=== PATIENT | male | born 1985 | race Two or more races ===

== ENCOUNTER → 2024-09-26 | Day surgery (SDC) | payer OTHER ==
[2024-09-25 11:41] VITALS: BP 136/90
[2024-09-25 12:17] LABS: URINE APPEARANCE Clear; URINE BILIRRUBIN Negative (NEGATIVE); URINE BLOOD Negative; URINE COLOR Yellow; URINE GLUCOSE Negative (NEGATIVE); URINE KETONE Negative (NEGATIVE); URINE LEUKOCYTE Negative; URINE NITRATE Negative; URINE PROTEIN Negative (NEGATIVE)
[2024-09-25 12:48] LABS: HEMATOCRIT 44.7 % (39.0-48.0); HEMOGLOBIN 15.3 g/dL (13-16.00); MEAN CELL VOLUME 86.3 fL (80.0-100.00); MEAN CORPUSCULAR HEMOGLOBIN 29.6 pg (27.00-32.0); MEAN CORPUSCULAR HGB CONC 34.3 g/dl (32.0-36.0); PLATELET COUNT 281 K/uL (150-450); RED BLOOD COUNT 5.18 M/uL (4.00-6.00); RED CELL DISTRIBUTION WIDTH 13.5 % (11.5-14.5)
[2024-09-25 12:52] LABS: COVID-19 AG NEGATIVE (NEGATIVE)
[2024-09-25 13:03] LABS: ALBUMIN 4.4 gm/dL (3.4-5.0); BILIRUBIN TOTAL 1.23 mg/dL (0.3-1.2); CALCIUM 9.6 mg/dL (8.5-10.1); CREATININE SERUM 0.92 mg/dL (0.70-1.30); GFR 91.59; GLOBULINA 3.4 G/DL (2.4-3.5); POTASSIUM 4.53 mEq/L (3.5-5.1); TOTAL PROTEIN 7.8 gm/dL (6.4-8.2)
[2024-09-25 13:12] LABS: URINE BACTERIA 0 uL (0.0-1933); URINE RBC 0.7 uL (0.0-20.8); URINE WBC 0.7 uL (0.0-23.2)
[2024-09-25 13:26] LABS: INR 0.97; PARTIAL THROMBOPLASTIN TIME 29.1 SECONDS (22.0-34.0); PROTHROMBIN TIME 10.6 SECONDS (9.0-11.5)
[~2024-09-26] VITALS: Ht 177.8 cm; Wt 83.9 kg
[~2024-09-26] MED LIST: COZAAR50 MG; ROSUVASTATIN CAL5 MG PO
== END | disposition home or self-care (01) ==
LOC: ADM 09-25 08:15 → CIR.AMB 06:41 → ADM 08:15 → CIR.AMB 08:15
PROVIDERS: ATTEND Orthopaedic Surgery
DX: S52.242A Displaced spiral fracture of shaft of ulna, left arm, initial encounter for closed fracture (principal); S50.12XA Contusion of left forearm, initial encounter
CPT/HCPCS: 25515; L8699

== ENCOUNTER 2025-04-13 15:53 | Emergency (ER) | payer OTHER ==
[~2025-04-13] VITALS: Ht 177.8 cm; Wt 86.2 kg
[2025-04-13] MEDS ORDERED: FAMOTIDINE/PF 20 MG/2 ML VIAL IV PUSH STA (17:36)
[2025-04-13] MEDS ORDERED: ONDANSETRON HCL 2 MG/ML VIAL IV STA (17:37)
[2025-04-13] MEDS ORDERED: RINGERS SOLUTION,LACTATED 1,000 ML IV STA (17:37)
[2025-04-13] MEDS ORDERED: ONDANSETRON HCL 2 MG/ML VIAL ONE (17:51)
[2025-04-13] MEDS ORDERED: FAMOTIDINE/PF 20 MG/2 ML VIAL ONE (17:51)
[2025-04-13 18:29] LABS: BASO % 0.2 % (0.1-1.2); EOS # 0.02 (0.04-0.54); EOS % 0.2 % (0.7-7.0); LYMPH # 1.26 (1.18-3.74); LYMPH % 9.7 % (19.3-53.1); MEAN PLATELET VOLUME 9.60 fl (9.4-12.4); MONO # 0.91 (0.24-0.82); MONO % 7.0 % (4.7-12.5); NEUT # 10.80 (1.56-6.13); NEUT % 82.7 % (34.0-71.1); RED CELL DISTRIBUTION WIDTH 12.4 % (11.6-14.4)
[2025-04-13] MEDS ORDERED: LOSARTAN POTASSIUM 50 MG TABLET PO STA (18:35)
[2025-04-13] MEDS ORDERED: ENALAPRILAT DIHYDRATE 2.5 MG/2 ML VIAL IV STA (18:35)
[2025-04-13] MEDS ORDERED: ENALAPRILAT DIHYDRATE 1.25 MG/ML VIAL IV STA (18:35)
[2025-04-13] MEDS ORDERED: ENALAPRILAT DIHYDRATE 1.25 MG/ML VIAL IV ONE (18:37)
[2025-04-13 18:58] LABS: ALT/SGPT 86.0 U/L (12-78); AST/SGOT 32.0 U/L (15-37); BILIRUBIN TOTAL 1.6 mg/dL (0.3-1.2); BUN CREA RATIO 10.0 (7.0-25.0); CREATININE SERUM 1.05 mg/dL (0.70-1.30); GFR 78.63; GLOBULINA 4.2 G/DL (2.4-3.5); GLUCOSE FASTING 109.0 mg/dL (65-100); OSMOLALITY SERUM 277.0 MOSM/KG (275-295)
[2025-04-13 18:58] LABS: URINE APPEARANCE Clear; URINE BILIRRUBIN Small (NEGATIVE); URINE COLOR Dark Yellow; URINE GLUCOSE Negative (NEGATIVE); URINE KETONE 15 (NEGATIVE); URINE LEUKOCYTE Trace; URINE NITRATE Negative; URINE PROTEIN 30 (NEGATIVE); URINE UROBILINOGEN 1.0 E.U./dl
[2025-04-13 19:02] LABS: URINE EPITHELIAL CELLS 1.6 uL (0.0-38.8); URINE RBC 11.2 uL (0.0-20.8); URINE WBC 1.9 uL (0.0-23.2)
[2025-04-13 19:16] LABS: URINE BACTERIA 1.1 uL (0.0-1933); URINE BLOOD TRACE; URINE CAST 0.14 uL (0.0-1.40)
[2025-04-13] MEDS ORDERED: METRONIDAZOLE/SODIUM CHLORIDE 500 MG/100 ML PIGGYBACK IV STA (20:41)
[2025-04-13] MEDS ORDERED: CIPROFLOXACIN IN 5 % DEXTROSE 400 MG/200 ML PIGGYBAG IV STA (20:41)
[2025-04-13] MEDS ORDERED: CIPROFLOXACIN IN 5 % DEXTROSE 400 MG/200 ML PIGGYBAG IV ONE (20:50)
[2025-04-13] MEDS ORDERED: METRONIDAZOLE/SODIUM CHLORIDE 500 MG/100 ML PIGGYBACK IV ONE (20:50)
[2025-04-13] MEDS ORDERED: KETOROLAC TROMETHAMINE 15 MG VIAL IV STA (21:29)
[2025-04-13] MEDS ORDERED: TRAMADOL HCL 50 MG TABLET PO STA (21:29)
[2025-04-13] MEDS ORDERED: KETOROLAC TROMETHAMINE 30 MG VIAL ONE (21:30)
== END 2025-04-14 03:09 | disposition home or self-care (01) ==
LOC: ER 15:53
PROVIDERS: General Practice
DX: K57.32 Diverticulitis of large intestine without perforation or abscess without bleeding (principal); I10 Essential (primary) hypertension; Z88.8 Allergy status to other drugs, medicaments and biological substances